=== PATIENT | female | born 1970 | race Hispanic/Latino ===

== ENCOUNTER 2020-10-26 12:02 | Emergency (ER) | payer SELFPAY ==
--- OUTSIDE RECORDS SUMMARY | 2020-10-26 12:25 | XMS REPORT | Continuity of Care Document ---
:1970 Author Organization [facility] t Address [address] [place] [address] Care Team Providers Name Role Phone Aron Attending Clinician Unknown Attending Clinician Unavailable Person MD Attending Clinician Person MD Admitting Clinician Problems This patient has no known problems. Allergies, Adverse Reactions, Alerts This patient has no known allergies or adverse reactions. Social History Social Habit Start Date Stop Date Quantity Comments Source Sex Assigned At MD Cardona Medications This patient has no known medications. Procedures This patient has no known procedures. Encounters Start End Encounter Admission Attending Care Care Encounter Source Date/Time Date/Time Type Type Clinicians Facility Department ID 2020-02-09 2020-02-09 Transition Genie Sharp [id number] 00:00:00 00:00:00 of Care Adriana Scott [id number] [facility] [id number] 2020-02-09 2020-02-09 Telephone Unknown, OSMAN [id number] 00:00:00 00:00:00 Attending HEALTH [id number] [facility] [id number] 2020-02-06 2020-02-08 Hospital PersonMalathi [id number] 21:53:35 14:58:00 Encounter Magno Romo [id number] [facility] [id number] Results This patient has no known results.
[2020-10-26] MEDS ORDERED: ACETAMINOPHEN 500 MG TAB ONE (13:45)
--- NOTE | 2020-10-26 14:02 | RAD REPORT ---
EXAM DESCRIPTION: RAD - Chest Single View - 10/26/2020 1:56 pm CLINICAL HISTORY: Cough;Fever COMPARISON: Portable September 2012 TECHNIQUE: AP portable chest image was obtained 10/26/2020 1:56 pm . FINDINGS: Lung volumes are low. Bilateral lung base atelectasis present. Heart size and vasculature are accentuated by low lung volumes. No significant failure or volume overload. No peripheral mass or consolidation. Heart and vasculature are normal. No measurable pleural effusion and no pneumothorax. No acute bony abnormality seen. No acute aortic findings suspected. IMPRESSION: Limited portable study without acute cardiopulmonary finding. No significant change from comparison.
[2020-10-26 14:59] LABS: SARS-COV-2 RT PCR POSITIVE (NEGATIVE)
--- NOTE | 2020-10-26 15:02 | ER ---
Nurse's Notes [facility] Name: Rosalia Hui Age: 50 yrs Sex: Female : 1970 Arrival Date: 10/26/2020 Time: 12:03 Bed 4 Private MD: Diagnosis: Coronavirus infection, unspecified Presentation: 10/26 13:15 Chief complaint: Patient's son or daughter states: Productive cough, fever, sore jl7 throat, body aches, chills x 2 days. Coronavirus screen: Client denies travel out of the [place] in the last 14 days. chills, congestion, cough unrelated to allergies, fever, headache, shortness of breath, sore throat, Client presents with at least one sign or symptom that may indicate coronavirus-19. Standard/surgical mask placed on the client. Provider contacted for isolation considerations. Ebola Screen: No symptoms or risks identified at this time. Resp Distress? No respiratory distress is noted at this time. Initial Sepsis Screen: Does the patient meet any 2 criteria? RR > 20 per min. Temp <36.0*C (96.8*F)) or > 38.3*C (100.9*F). HR > 90 bpm. Yes Does the patient have a suspected source of infection? Yes: Productive cough/pneumonia If YES to both, name of provider notified: Halina CULLEN. Risk Assessment: Do you want to hurt yourself or someone else? Patient reports no desire to harm self or others. Onset of symptoms was October 25, 2020. Care prior to arrival: None. Transition of care: patient was not received from another setting of care. 13:15 Method Of Arrival: Wheelchair jl7 13:15 Acuity: DOREEN 3 jl7 Triage Assessment: 13:19 General: Appears in no apparent distress. uncomfortable, ill, Behavior is calm, jl7 cooperative, appropriate for age. Pain: Complains of pain in chest Pain currently is 8 out of 10 on a pain scale. Quality of pain is described as aching. Respiratory: Airway is patent Respiratory effort is even, unlabored, Respiratory pattern is symmetrical, tachypnea not auscultated. 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 - Social history:: Smoking status: Patient denies any tobacco usage or history of. Screenin:59 Abuse screen: Denies threats or abuse. Denies injuries from another. Nutritional iw screening: No deficits noted. Tuberculosis screening: No symptoms or risk factors identified. Fall Risk None identified. Assessment: 14:00 General: Appears in no apparent distress. Behavior is calm, cooperative. Neuro: Level iw of Consciousness is awake, alert, obeys commands. Cardiovascular: Patient's skin is warm and dry. Respiratory: Respiratory effort is even, unlabored, Respiratory pattern is regular. Respiratory: Reports cough that is. Respiratory: Reports Breath sounds are clear bilaterally. Derm: Skin is intact, is healthy with good turgor. Musculoskeletal: Range of motion: intact in all extremities. 14:58 Reassessment: Patient appears in no apparent distress at this time. Patient and/or iw family updated on plan of care and expected duration. Pain level reassessed. Patient is alert, oriented x 3, equal unlabored respirations, skin warm/dry/pink. pt states pain is 8/10, temp is down to 100.6, c/o pain to head and legs , body aches. Vital Signs: 13:15 BP 143 / 92; Pulse 108; Resp 23; Temp 103; Pulse Ox 97% ; Weight 81.65 kg; Pain 8/10; jl7 14:58 BP 133 / 96; Pulse 106; Resp 20; Temp 100.6; Pulse Ox 97% on R/A; Pain 8/10; em1 ED Course: 12:03 Patient arrived in ED. as 12:57 Halina Leone FNP-C [facility]. kb 12:57 Jung Stuart MD is Attending Physician. kb 13:18 Triage completed. jl7 13:19 Arm band placed on right wrist. jl7 13:34 Nell Farrell, RN is Primary Nurse. iw 13:43 COVID swab sent to lab. Flu and/or RSV swab sent to lab. jl7 13:57 Chest Single View XRAY In Process Unspecified. EDMS 14:00 Patient has correct armband on for positive identification. iw 15:09 No provider procedures requiring assistance completed. Patient did not have IV access iw during this emergency room visit. Administered Medications: 13:30 Drug: Tylenol 1000 mg Route: PO; jl7 Outcome: 15:01 Discharge ordered by . ifeanyi 15:09 Discharged to home ambulatory. iw 15:09 Condition: good 15:09 Discharge instructions given to patient, Instructed on discharge instructions, follow up and referral plans. Demonstrated understanding of instructions, follow-up care. 15:10 Patient left the ED. iw Signatures: Dispatcher [employer] EDRI Halina Leone, Alma Rosa Sierra Irene, RN RN iw Garrett Velasquez em1 Sumit Zacarias RN RN jl7 Corrections: (The following items were deleted from the chart) 13:42 13:15 Initial Sepsis Screen: Does the patient meet any 2 criteria? RR > 20 per min. jl7 Temp <36.0*C (96.8*F)) or > 38.3*C (100.9*F). HR > 90 bpm. Yes Does the patient have a suspected source of infection? Yes: Productive cough/pneumonia If YES to both, name of provider notified: Halina CULLEN jl7
--- NOTE | 2020-10-26 15:02 | EDPHYS ---
Physician Documentation [facility] Name: Rosalia Hui Age: 50 yrs Sex: Female : 1970 Arrival Date: 10/26/2020 Time: 12:03 Bed 4 Private MD: ED Physician Jung Stuart HPI: 10/26 15:07 This 50 yrs old Female presents to ER via Wheelchair with complaints of Fever, kb Cough, Congestion. 15:07 The patient or guardian reports cough, flu symptoms, low-grade fever, myalgias, no kb appetite. Onset: The symptoms/episode began/occurred yesterday. Severity of symptoms: At their worst the symptoms were moderate, in the emergency department the symptoms are unchanged. Modifying factors: The symptoms are alleviated by the symptoms are aggravated by nothing. Associated signs and symptoms: Pertinent positives: fever, Pertinent negatives: chest pain, diarrhea, ear ache, nausea, rhinorrhea, sore throat, vomiting. The patient has not experienced similar symptoms in the past. The patient has not recently seen a physician. 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 - Social history:: Smoking status: Patient denies any tobacco usage or history of. ROS: 15:10 Cardiovascular: Negative for chest pain, palpitations, and edema, Abdomen/GI: Negative kb for abdominal pain, nausea, vomiting, diarrhea, and constipation, MS/Extremity: Negative for injury and deformity, Skin: Negative for injury, rash, and discoloration, Neuro: Negative for headache, weakness, numbness, tingling, and seizure. 15:10 Constitutional: Positive for body aches, chills, fever, malaise. 15:10 Respiratory: Positive for cough, Negative for dyspnea on exertion, hemoptysis, orthopnea, pleurisy, shortness of breath, sputum production, wheezing. Exam: 15:10 Constitutional: This is a well developed, well nourished patient who is awake, alert, kb and in no acute distress. Head/Face: Normocephalic, atraumatic. Chest/axilla: Normal chest wall appearance and motion. Nontender with no deformity. No lesions are appreciated. Cardiovascular: Regular rate and rhythm with a normal S1 and S2. No gallops, murmurs, or rubs. Normal PMI, no JVD. No pulse deficits. Respiratory: Lungs have equal breath sounds bilaterally, clear to auscultation and percussion. No rales, rhonchi or wheezes noted. No increased work of breathing, no retractions or nasal flaring. Abdomen/GI: Soft, non-tender, with normal bowel sounds. No distension or tympany. No guarding or rebound. No evidence of tenderness throughout. Skin: Warm, dry with normal turgor. Normal color with no rashes, no lesions, and no evidence of cellulitis. MS/ Extremity: Pulses equal, no cyanosis. Neurovascular intact. Full, normal range of motion. Neuro: Awake and alert, GCS 15, oriented to person, place, time, and situation. Cranial nerves II-XII grossly intact. Motor strength 5/5 in all extremities. Sensory grossly intact. Cerebellar exam normal. Normal gait. Vital Signs: 13:15 BP 143 / 92; Pulse 108; Resp 23; Temp 103; Pulse Ox 97% ; Weight 81.65 kg; Pain 8/10; jl7 14:58 BP 133 / 96; Pulse 106; Resp 20; Temp 100.6; Pulse Ox 97% on R/A; Pain 8/10; em1 MDM: 13:23 Patient medically screened. kb 14:59 Data reviewed: vital signs, nurses notes. Data interpreted: Pulse oximetry: on room air kb is 97 %. Interpretation: normal. Counseling: I had a detailed discussion with the patient and/or guardian regarding: the historical points, exam findings, and any diagnostic results supporting the discharge/admit diagnosis, lab results, radiology results, the need for outpatient follow up, a family practitioner, to return to the emergency department if symptoms worsen or persist or if there are any questions or concerns that arise at home. 10/26 13:23 Order name: Chest Single View XRAY; Complete Time: 14:05 kb 10/26 14:59 Order name: COVID-19/FLU A+B; Complete Time: 14:59 EDMS Administered Medications: 13:30 Drug: Tylenol 1000 mg Route: PO; jl7 Disposition: 18:07 Co-signature as Attending Physician, Jung Stuart MD. rn Disposition: 10/26/20 15:01 Discharged to Home. Impression: Coronavirus infection, unspecified. - Condition is Stable. - Discharge Instructions: Viral Respiratory Infection, [id number], COVID-19. - Medication Reconciliation Form, Thank You Letter, Antibiotic Education, Prescription Opioid Use form. - Follow up: Emergency Department; When: As needed; Reason: Worsening of condition. Follow up: Private Physician; When: 2 - 3 days; Reason: Recheck today's complaints, Continuance of care, Re-evaluation by your physician. Signatures: Dispatcher [employer] [facility] Halina Leone, URBAN DESIGNER-C URBAN DESIGNER-Nell Greene, RN Jung Osman MD MD rn Leal, Jahala, RN RN jl7 Corrections: (The following items were deleted from the chart) 13:52 13:21 CORONAVIRUS+MR.LAB.BRZ ordered. [facility] 15:10 15:01 10/26/2020 15:01 Discharged to Home. Impression: Coronavirus infection, iw unspecified. Condition is Stable. Forms are Medication Reconciliation Form, Thank You Letter, Antibiotic Education, Prescription Opioid Use. Follow up: Emergency Department; When: As needed; Reason: Worsening of condition. Follow up: Private Physician; When: 2 - 3 days; Reason: Recheck today's complaints, Continuance of care, Re-evaluation by your physician. kb
[2020-10-26 15:25] VITALS: O2SAT 97
[2020-10-26 15:27] VITALS: BP 133/96; TEMP 100.6
== END 2020-10-26 15:10 | disposition home or self-care (01) ==
LOC: ER 12:02
DX: U07.1 COVID-19 (principal)
CPT/HCPCS: 0240U; 71045; 99283

== ENCOUNTER 2020-11-03 16:19 | Emergency (ER) | payer SELFPAY ==
--- OUTSIDE RECORDS SUMMARY | 2020-11-03 16:21 | XMS REPORT | Summary of Care ---
:1970 Author Organization [facility] Address [address] [place] [id number] Care Team Providers Name Role Phone Pcp, Does Not Have A Primary Care Provider Reason for Visit Reason Comments Fatigue Auth/Cert Status Reason Specialty Diagnoses / Referred By Referred To Procedures Contact Contact Emergency Medicine Ad[facility] Em ergency Dept [address] [place] [id number] Fax: Encounter Details Date Type Department Care Team Description 10/31/2020 Emergency ADC-Emergency Delilah Merdano PAC COVID-19 (Primary Dx) Department [address] [place] [address] [phone] [place] [address] [phone] Allergies No Known Allergiesdocumented as of this encounter (statuses as of 10/31/2020) Medications Medication Sig Dispensed Refills Start Date End Date Status ferrous sulfate 325 mg Take 1 Cap by 90 Cap 0 09/25/2015 Active (65 mg iron) SR mouth 3 (three) capsule times daily with meals. naproxen 250 mg Take 1 tablet by 0 02/08/2020 Active tabletIndications: mouth 2 (two) Acute appendicitis times daily with with localized meals. peritonitis, without perforation, abscess, or gangrene ibuprofen 600 mg Take 1 tablet by 30 tablet 0 10/31/2020 Active tabletIndications: mouth every 6 COVID-19 (six) hours as needed for Pain (scale 4-6). benzonatate 200 mg Take 1 capsule by 20 capsule 0 10/31/2020 Active capsuleIndications: mouth 3 (three) COVID-19 times daily as needed for Cough for up to 20 doses. ondansetron (ZOFRAN Take 1 tablet by 10 tablet 0 10/31/2020 Active ODT) 4 mg mouth every 8 disintegrating (eight) hours as tabletIndications: needed for Nausea COVID-19 and Vomiting (N/V). albuterol 90 Inhale 2 Puffs 8.5 g 0 10/31/2020 A ctive mcg/actuation every 4 (four) inhalerIndications: hours as needed COVID-19 for Wheezing or Shortness of Breath. documented as of this encounter (statuses as of 10/31/2020) Active Problems Problem Noted Date Obesity (BMI 30-39.9) 02/07/2020 Acute appendicitis with localized peritonitis, without perforation, 02/06/2020 abscess, or gangrene Abdominal pain, generalized 09/24/2015 documented as of this encounter (statuses as of 10/31/2020) Social History Tobacco Use Types Packs/Day Years Used Date Never Smoker Alcohol Use Drinks/Week oz/Week Comments No Sex Assigned at Date Recorded Not on file COVID-19 Exposure Response Date Recorded In the last month, have you been in contact with No / Unsure 10/31/2020 4:43 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 documented as of this encounter Last Filed Vital Signs Vital Sign Reading Time Taken Comments Blood Pressure 133/92 10/31/2020 5:30 PM ASSOCIATE PROFESSOR OF LITERACY Pulse 85 10/31/2020 5:30 PM ASSOCIATE PROFESSOR OF LITERACY Temperature 37.4 C (99.3 F) 10/31/2020 4:56 PM ASSOCIATE PROFESSOR OF LITERACY Respiratory Rate 14 10/31/2020 5:30 PM ASSOCIATE PROFESSOR OF LITERACY Oxygen Saturation 96% 10/31/2020 5:30 PM ASSOCIATE PROFESSOR OF LITERACY Inhaled Oxygen Concentration - - Weight 86.2 kg (190 lb) 10/31/2020 4:56 PM ASSOCIATE PROFESSOR OF LITERACY Height - - Body Mass Index 35.92 09/24/2015 8:52 PM ASSOCIATE PROFESSOR OF LITERACY documented in this encounter Discharge Instructions Delilah Villegas, PAC - 10/31/2020YOU NEED TO QUARANTINE FOR SUSPECTED COVID-19 You have the following prescriptions to take as needed: Tessalon Pearls (cough medication) Zofran (nausea medication) Ibuprofen (for headache, body aches, or fever) Albuterol inhaler You may also take the following Vitamin supplements shown to improved course of COVID: Vit C 1000mg daily Vit D3 20,000 units daily (high dose) Zinc 220mg daily Also recommended Asprin 325mg daily Mucinex D (as needed according to package instructions) Benadryl (as needed according to package instructions) Tylenol (as needed up to maximum of 1000mg every 6 hours) Imodium AD (as needed according to package instructions for diarrhea) Return to the ER for worsening shortness of breath, chest pain, or other concerns of serious illness. AttachmentsThe following attachments cannot be sent through Care Everywhere. Coronavirus Disease 2019 (COVID-19)- Overview (Portuguese)documented in this encounter ED Notes Pretty Ling RN - 10/31/2020 4:54 PM CSTPatient arrived via private car with c/o fatigue; states she tested positive for covid almost 1 weekago; last medicated at 2pm today for fever. Patient ambulated from [facility] to [facility] without difficulty.O2 sats upon arrival to room 96% on room air. Delilah Sheldon PAC - 10/31/2020 4:44 PM CST [facility] Emergency Department Note Patient Name: Rosalia Hui Date of : 1970 50 year old female Treatment Room: [place] [address] Primary Care Physician: PATIENT DOES NOT HAVE A PCP Patient Escorted by: Family [5] Mode of Arrival: Personal means [1] EMS Treatment Prior to ED Arrival: COIL TIER treatment: None Travel and Exposure Screening: Symptoms Does patient have any of these symptoms?: (not recorded) Exposure Screening Has patient had contact with someone with a communicable disease in the last month?: (not recorded) Diseases exposed to:: (not recorded) Is Patient ?: (not recorded) Exposure Date: (not recorded) Chief Complaint: Chief Complaint Patient presents with Fatigue History of Present Illness: HPI Past Medical History/Immunizations: No past medical history on file. Tetanus received in last 5 years: No Allergies: No Known Allergies Past Social History: Tobacco Use Never Smoker. Alcohol Use No. Drug Use No. Past Surgical History: Past Surgical History: Procedure Laterality Date CHOLECYSTECTOMY LAPAROSCOPIC APPENDECTOMY N/A 02/06/2020 Surgeon: Magno Zavala MD; Location: [facility] Review of Systems: Review of Systems Physical Exam: ED Triage Vitals [10/31/20 1656] Weight 86.2 kg (190 lb) Actual or estimated Estimated by patient/family report Height BP (!) 163/90 Pulse 88 Resp 22 Temp 37.4 C (99.3 F) Temp source Axillary SpO2 97 % Measured on Room air Physical Exam Radiology: No results found for this visit on 10/31/20. Lab Results (24h): No results found for this or any previous visit (from the past 24 hour(s)). Orders and Treatments: No orders of the defined types were placed in this encounter. No orders of the defined types were placed in this encounter. ED COURSE MDM: Coding Scoring Tools: No data recorded Diagnosis/Impression: No diagnosis found. Disposition/Condition: ED Disposition None Discharge Medications: Patient's Medications START taking these medications No medications on file CONTINUE taking these medications which have NOT CHANGED FERROUS SULFATE 325 MG (65 MG IRON) SR CAPSULE Take 1 Cap by mouth 3 (three) times daily with meals. NAPROXEN 250 MG TABLET Take 1 tablet by mouth 2 (two) times daily with meals. START taking Modified Medications as Prescribed No medications on file STOP taking these medications No medications on file Follow-up: Electronically signed by: TENA Thomas 10/31/2020 5:36 PM CIATE PROFESSOR OF LITERACY documented in this encounter Miscellaneous Notes ED Nurse Note - Alva Osuna RN - 10/31/2020 5:48 PM CSTPatient provided discharge instructions, AVS, prescription, Return precautions, quarantine instructions, and told to follow-up with PCP. Patient verbalized understanding of discharge instructions and ambulated out of ED in no acute distress. D Nurse Note - Pauly Noguera RN - 10/31/2020 5:00 PM CSTPatient said she tested positive for covid on October 26, 2020 done in [place]. documented in this encounter Plan of Treatment Health Maintenance Due Date Last Done Comments PNEUMOCOCCAL 0-64 YEARS COMBINED 1974 SERIES (1 of 3 - PCV13) Depression Screening 1980 DTaP,Tdap,and Td Vaccines (1 - Tdap) 1987 PAP SMEAR 09/04/2008 09/04/2005, 08/15/2004, 08/17/2003 Breast Cancer Screening (MAMMOGRAM) 2008 COLON CANCER SCREENING ANNUAL 2018 FIT/FOBT COLON CANCER SCREENING FIT DNA EVERY 2018 3 YEARS COLON CANCER SCREENING SIGMOIDOSCOPY 2018 EVERY 5 YEARS COLONOSCOPY 2018 Colorectal Cancer Screening 2018 Zoster Recombinant Vaccine (SHINGRIX) 2018 (1 of 2) INFLUENZA VACCINE (#1) 2020 documented as of this encounter Procedures Procedure Name Priority Date/Time Associated Diagnosis Comme nts NOTICE OF PRIVACY Routine 10/31/2020 4:43 PM ASSOCIATE PROFESSOR OF LITERACY PRACTICES documented in this encounter Results Not on filedocumented in this encounter Visit Diagnoses Diagnosis COVID-19 - Primary documented in this encounter Administered Medications Medication Order MAR Action Action Date Dose Rate Site albuterol (VENTOLIN) inhaler 2 Given 10/31/2020 5:45 PM ASSOCIATE PROFESSOR OF LITERACY 2 P uffs Puff 2 Puff, Inhalation, ONCE, 1 dose, 10/31/20 at 1845, JC, Is this order for a patient with suspected or confirmed COVID-19 infection? Yes documented in this encounter
--- OUTSIDE RECORDS SUMMARY | 2020-11-03 16:21 | XMS REPORT | Summary of Care ---
:1970 Author Organization [facility] - Health Address [address] [place] [id number] Care Team Providers Name Role Phone Pcp, Does Not Have A Primary Care Provider Encounter Details Date Type Department Care Team Description 10/31/2020 Orders Only [facility] Doctor Unassigned, No [address] [facility] Name [place] [phone] [place] [phone] Allergies No Known Allergiesdocumented as of this encounter (statuses as of 10/31/2020) Medications Medication Sig Dispensed Refills Start Date End Date Status ferrous sulfate 325 mg Take 1 Cap by 90 Cap 0 09/25/2015 Active (65 mg iron) SR capsule mouth 3 (three) times daily with meals. naproxen 250 mg Take 1 tablet by 0 02/08/2020 Active tabletIndications: mouth 2 (two) Acute appendicitis with times daily with localized peritonitis, meals. without perforation, abscess, or gangrene documented as of this encounter (statuses as [...] Assigned at Date Recorded Not on file documented as of this encounter Last Filed Vital Signs Not on filedocumented in this encounter Plan of Treatment Health [...] Name Priority Date/Time Associated Diagnosis Comme nts CONSENT/REFUSAL FOR Routine 10/31/2020 4:43 PM PASTRY FINISHER DIAGNOSIS AND TREATMENT documented in this encounter Results Not on filedocumented in this encounter
--- OUTSIDE RECORDS SUMMARY | 2020-11-03 16:21 | XMS REPORT | Continuity of Care Document ---
:1970 Author Organization [facility] t Address [address] [place] [address] Care Team Providers Name Role Phone Ling Dowling Attending Clinician Doctor Unassigned, Name Attending Clinician Unavailable Sharp Attending Clinician Unknown Attending Clinician Unavailable Person [...] Date/Time Type Type Clinicians Facility Department ID 2020-10-31 2020-10-31 Emergency Delilah Medrano [facility] [id number] 16:49:00 17:48:00 Ling Braga [id number] [place] [id number] [place] [id number] [id number] 2020-10-31 2020-10-31 Orders Doctor WILKINSON [id number] 00:00:00 00:00:00 Only UnassASIYA chester [id number] [place] [facility] [id number] [id number] 2020-02-09 2020-02-09 Transition Genie Sharp [id number] 00:00:00 00:00:00 of Care Adriana Scott [id number] [place] [id number] 2020-02-09 2020-02-09 Telephone Unknown, [facility] [id number] 00:00:00 00:00:00 Attending [facility] [id number] CLINICS [id number] 2020-02-06 2020-02-08 Hospital Malathi Zavala [id number] 21:53:35 14:58:00 Encounter Magno Romo [id number] Hospital [id number] Results This patient has no known results.
[2020-11-03] MEDS ORDERED: METHYLPREDNISOLONE 40 MG INJ ONE (19:55)
[2020-11-03] MEDS ORDERED: HYDROCODONE/CHLORPHEN 5 ML/OSYR ONE (19:55)
[2020-11-03 20:19] LABS: Absolute Lymphocytes (CBC) 1.3 K/uL (0.7-4.9); Basophils % 0.2 % (0-1.3); Hematocrit 36.9 % (36.0-45.0); Lymphocytes % 33.5 % (15.3-44.8); MPV 9.1 fL (7.6-11.3); RBC Red Blood Cell Count 4.53 M/uL (3.86-4.86)
[2020-11-03 20:29] LABS: ALT/SGPT 64 U/L (12-78); AST/SGOT 52 U/L (15-37); Albumin 3.5 g/dL (3.4-5.0); Alkaline Phosphatase 176 U/L (45-117); BUN Blood Urea Nitrogen 13 mg/dL (7-18); Bicarbonate 24 mmol/L (21-32); Bilirubin Direct < 0.1 mg/dL (0-0.2); Bilirubin Total 0.2 mg/dL (0.2-1.0); Glucose Level 92 mg/dL (74-106); Magnesium 2.3 mg/dL (1.8-2.4); NT PRO-BNP 51 pg/mL (<125); Potassium 3.5 mmol/L (3.5-5.1); Protein, Total 7.8 g/dL (6.4-8.2); Sodium Level 140 mmol/L (136-145); Troponin (Emerg Dept Use Only) < 0.02 ng/mL (0.0-0.045)
--- NOTE | 2020-11-03 20:36 | RAD REPORT ---
EXAM DESCRIPTION: RAD - Chest Single View - 11/03/2020 8:27 pm CLINICAL HISTORY: Chest pain;Cough Chest pain. COMPARISON: Chest Single View dated 10/26/2020; CHEST SINGLE VIEW dated 09/30/2012; CHEST PA AND LAT 2 VIEW dated 07/17/2002 FINDINGS: Portable technique limits examination quality. Mild bilateral interstitial opacities are present likely representing viral pneumonitis/ bronchitis. The heart is upper limit normal size. No displaced fractures.
[2020-11-03 20:58] LABS: Protime INR 0.96
--- NOTE | 2020-11-03 22:03 | ER ---
Nurse's Notes [facility] Name: Rosalia Hui Age: 50 yrs Sex: Female : 1970 Arrival Date: 11/03/2020 Time: 16:21 Bed 24 Private MD: Diagnosis: Coronavirus infection, unspecified;Pneumonia due to other specified infectious organisms Presentation: 11/03 16:32 Chief complaint: Patient states: Covid positive 10/25/20. SOB, fever, chest pain for 5 ll1 days. Coronavirus screen: Client denies travel out of the [place] in the last 14 days. cough unrelated to allergies, difficulty breathing, fatigue, fever, headache, muscle pain, shaking with chills, shortness of breath, sore throat, loss of taste or smell, Client presents with at least one sign or symptom that may indicate coronavirus-19. Standard/surgical mask placed on the client. Client reports previous positive COVID test result. Ebola Screen: Patient denies travel to an Ebola-affected area in the 21 days before illness onset. Initial Sepsis Screen: Does the patient meet any 2 criteria? RR > 20 per min. Does the patient have a suspected source of infection? Yes: Productive cough/pneumonia. Risk Assessment: Do you want to hurt yourself or someone else? Patient reports no desire to harm self or others. Onset of symptoms was October 25, 2020. 16:32 Method Of Arrival: Ambulatory ll1 16:32 Acuity: DOREEN 3 ll1 Triage Assessment: 19:15 General: Appears distressed, uncomfortable, obese, Behavior is cooperative, appropriate bp for age, anxious. Pain: Complains of pain in chest. EENT: No deficits noted. Neuro: Level of Consciousness is awake, alert, obeys commands, Oriented to person, place, time, situation, Appropriate for age. Cardiovascular: Rhythm is sinus rhythm. Respiratory: Reports cough that is Breath sounds with crackles bilaterally. GI: No signs and/or symptoms were reported involving the gastrointestinal system. : No signs and/or symptoms were reported regarding the genitourinary system. Derm: No deficits noted. Musculoskeletal: No deficits noted. Historical: - Allergies: 16:34 No Known Allergies; ll1 - PSHx: 16:34 Appendectomy; Cholecystectomy; ll1 - Immunization history:: Flu vaccine is not up to date. - Social history:: Smoking status: Patient denies any tobacco usage or history of. Screenin:15 Abuse screen: Denies threats or abuse. Denies injuries from another. Nutritional bp screening: No deficits noted. Tuberculosis screening: No symptoms or risk factors identified. Fall Risk None identified. Assessment: 19:15 General: SEE TRIAGE NOTE. bp 20:30 Reassessment: ALL CURRENT ORDERS COMPLETED, RESULTS PENDING. bp 21:30 Reassessment: No changes from previously documented assessment. Patient and/or family bp updated on plan of care and expected duration. Pain level reassessed. Patient is alert, oriented x 3, equal unlabored respirations, skin warm/dry/pink. 22:27 Reassessment: PT D/C HOME AMBULATORY, DX WITH COVID PNEUMONIA. bp Vital Signs: 16:32 BP 139 / 89; Pulse 93; Resp 28; Temp 98.7; Pulse Ox 97% on R/A; Weight 85.73 kg; Height ll1 5 ft. 1 in. (154.94 cm); Pain 9/10; 20:30 BP 142 / 85; Pulse 80; Resp 16; Pulse Ox 99% ; bp 21:30 BP 138 / 91; Pulse 79; Resp 16; Pulse Ox 96% on R/A; bp 22:26 BP 148 / 94; Pulse 78; Resp 17; Pulse Ox 94% on R/A; bp 16:32 Body Mass Index 35.71 (85.73 kg, 154.94 cm) ll1 ED Course: 16:21 Patient arrived in ED. ds1 16:34 Triage completed. ll1 16:35 Arm band placed on. ll1 19:15 Romero Chery PA is PHCP. cp 19:15 Elian العراقي MD is Attending Physician. cp 19:15 Romero Cardona MD is Attending Physician. cp 19:15 Patient has correct armband on for positive identification. Placed in gown. Bed in low bp position. Call light in reach. Side rails up X2. monitor tech on. Pulse ox on. NIBP on. 19:15 Patient maintains SpO2 saturation greater than 95% on room air. bp 19:25 Naeem Yanez, MARLON is Primary Nurse. bp 19:45 Inserted saline lock: 22 gauge in right forearm, using aseptic technique. Blood bp collected. 22:35 No provider procedures requiring assistance completed. IV discontinued, intact, bp bleeding controlled, No redness/swelling at site. Pressure dressing applied. Administered Medications: 19:45 Drug: Tussionex Pennkinetic ER 5 ml Route: PO; bp 20:03 Follow up: Response: No adverse reaction bp 19:45 Drug: SOLU-Medrol 80 mg Route: IVP; Site: right forearm; bp 20:03 Follow up: Response: No adverse reaction bp 21:45 Drug: Rocephin - (cefTRIAXone) 1 grams Route: IVPB; Infused Over: 30 mins; Site: right bp forearm; 22:27 Follow up: IV Status: Completed infusion; IV Intake: 50ml bp Intake: 22:27 IV: 50ml; Total: 50ml. bp Outcome: 22:03 Discharge ordered by MD. cp 22:36 Discharged to home ambulatory. bp 22:36 Condition: stable 22:36 Discharge instructions given to patient, Instructed on discharge instructions, follow up and referral plans. medication usage, Demonstrated understanding of instructions, follow-up care, medications, Prescriptions given X 1. 22:39 Patient left the ED. bp Signatures: Mar Calvert ds1 Romero Chery PA PA cp Peltier, Brian, RN RN bp Kassi Arias RN RN ll1
--- NOTE | 2020-11-03 22:03 | EDPHYS ---
Physician Documentation [facility] Name: Rosalia Hui Age: 50 yrs Sex: Female : 1970 Arrival Date: 11/03/2020 Time: 16:21 Bed 24 Private MD: ED Physician Romero Cardona HPI: 11/03 19:35 This 50 yrs old Female presents to ER via Ambulatory with complaints of Covid cp + SOB, Chest Pain. 19:35 The patient has shortness of breath at rest. cp 19:35 Onset: The symptoms/episode began/occurred 5 day(s) ago. Duration: The symptoms are cp continuous, and are steadily getting worse. Associated signs and symptoms: Pertinent positives: chest pain, fever. Severity of symptoms: in the emergency department the symptoms are unchanged despite home interventions. 19:35 Patient reports she tested positive for Covid-19 on 10-25-2020. cp Historical: - Allergies: 16:34 No Known Allergies; ll1 - PSHx: 16:34 Appendectomy; Cholecystectomy; ll1 - Immunization history:: Flu vaccine is not up to date. - Social history:: Smoking status: Patient denies any tobacco usage or history of. ROS: 19:40 Constitutional: Negative for body aches, chills, fever, poor PO intake. cp 19:40 Eyes: Negative for injury, pain, redness, and discharge. cp 19:40 ENT: Negative for ear pain, sore throat. 19:40 Cardiovascular: Positive for chest pain, with cough, Negative for palpitations. 19:40 Respiratory: Positive for cough, "sounds productive", shortness of breath, Negative for wheezing. 19:40 Abdomen/GI: Negative for abdominal pain, nausea, vomiting, and diarrhea. 19:40 Back: Negative for pain at rest, pain with movement. 19:40 Neuro: Negative for altered mental status, dizziness, headache, syncope, weakness. 19:40 All other systems are negative. cp Exam: 19:55 Constitutional: The patient appears in no acute distress, alert, awake, cp non-diaphoretic, non-toxic, well developed, well nourished. 19:55 Head/Face: Normocephalic, atraumatic. cp 19:55 Eyes: Periorbital structures: appear normal, Conjunctiva: normal, no exudate, no injection, Sclera: no appreciated abnormality, Lids and lashes: appear normal, bilaterally. 19:55 ENT: External ear(s): are unremarkable, Nose: is normal, Posterior pharynx: Airway: no evidence of obstruction, patent. 19:55 Neck: ROM/movement: is normal, is supple, no meningismus, no nuchal rigidity. 19:55 Chest/axilla: Inspection: normal, Palpation: is normal, no crepitus, no tenderness. 19:55 Cardiovascular: Rate: normal, Rhythm: regular, Heart sounds: murmur, not appreciated, Edema: is not appreciated, JVD: is not appreciated. 19:55 Respiratory: the patient does not display signs of respiratory distress, Respirations: labored breathing, that is mild, intercostal retractions, are absent, Breath sounds: bronchial sounds, that are mild, are heard diffusely, wheezing: is not appreciated. 19:55 Abdomen/GI: Inspection: abdomen appears normal, Bowel sounds: active, all quadrants, Palpation: abdomen is soft and non-tender, in all quadrants, rebound tenderness, is not appreciated, voluntary guarding, is not appreciated, involuntary guarding, is not appreciated. 19:55 Back: pain, is absent, ROM is normal. 19:55 Neuro: Orientation: to person, place \\T\\ time. Mentation: is normal, Motor: moves all fours, strength is normal. 20:25 ECG was reviewed by the Attending Physician. cp Vital Signs: 16:32 BP 139 / 89; Pulse 93; Resp 28; Temp 98.7; Pulse Ox 97% on R/A; Weight 85.73 kg; Height ll1 5 ft. 1 in. (154.94 cm); Pain 9/10; 20:30 BP 142 / 85; Pulse 80; Resp 16; Pulse Ox 99% ; bp 21:30 BP 138 / 91; Pulse 79; Resp 16; Pulse Ox 96% on R/A; bp 22:26 BP 148 / 94; Pulse 78; Resp 17; Pulse Ox 94% on R/A; bp 16:32 Body Mass Index 35.71 (85.73 kg, 154.94 cm) ll1 MDM: 19:16 Patient medically screened. kevin 20:00 Differential diagnosis: pneumonia, Pneumothorax pulmonary edema, Pulmonary Embolism cp Sepsis. 22:02 Data reviewed: vital signs, nurses notes, lab test result(s), radiologic studies, plain cp films, and as a result, I will discharge patient. 22:02 Test interpretation: by ED physician or midlevel provider: ECG, plain radiologic cp studies. Counseling: I had a detailed discussion with the patient and/or guardian regarding: the historical points, exam findings, and any diagnostic results supporting the discharge/admit diagnosis, lab results, radiology results, the need for outpatient follow up, a family practitioner, to return to the emergency department if symptoms worsen or persist or if there are any questions or concerns that arise at home. Response to treatment: the patient's symptoms have markedly improved after treatment, VSS. Patient appears non-toxic and no signs of respiratory distress. Patient maintains oxygens above 94%. Will discharge to home for continued monitoring. 11/03 19:32 Order name: Basic Metabolic Panel cp 11/03 19:32 Order name: CBC with Diff cp 11/03 19:32 Order name: LFT's cp 11/03 19:32 Order name: Magnesium cp 11/03 19:32 Order name: NT PRO-BNP cp 11/03 19:32 Order name: PT-INR cp 11/03 19:32 Order name: Troponin (emerg Dept Use Only) cp 11/03 19:32 Order name: COVID-19 cp 11/03 19:32 Order name: D-Dimer cp 11/03 19:32 Order name: Influenza Screen (a \\T\\ B) cp 11/03 20:29 Order name: Basic Metabolic Panel; Complete Time: 21:26 EDMS 11/03 20:29 Order name: Liver (Hepatic) Function; Complete Time: 21:26 EDVA 11/03 20:29 Order name: Troponin (Emerg Dept Use Only); Complete Time: 21:26 EDMS 11/03 20:29 Order name: NT PRO-BNP; Complete Time: 21:26 EDMS 11/03 19:32 Order name: XRAY Chest (1 view) cp 11/03 19:32 Order name: EKG; Complete Time: 19:33 cp 11/03 19:32 Order name: Cardiac monitoring; Complete Time: 20:31 cp 11/03 19:32 Order name: EKG - Nurse/Tech; Complete Time: 20:31 cp 11/03 19:32 Order name: IV Saline Lock; Complete Time: 20:00 cp 11/03 20:29 Order name: Magnesium; Complete Time: 21:26 EDMS 11/03 20:33 Order name: CBC with Automated Diff; Complete Time: : EDVA 11/03 20:37 Order name: RAD; Complete Time: 21: EDVA 11/03 20:58 Order name: Protime (+INR); Complete Time: 21:26 EDMS 11/03 20:58 Order name: D-Dimer; Complete Time: 21: EDVA 11/03 21:22 Order name: Influenza Screen (A EDMS 11/03 21:23 Order name: CORONAVIRUS EDVA 11/03 22:35 Order name: COVID-19/FLU A+B EDMS 11/03 19:32 Order name: Labs collected and sent; Complete Time: 20:00 cp 11/03 19:32 Order name: O2 Per Protocol; Complete Time: 20:00 cp 11/03 19:32 Order name: O2 Sat Monitoring; Complete Time: 20:00 cp EC:25 Rate is 78 beats/min. Rhythm is regular. WA interval is normal. QRS interval is normal. cp QT interval is normal. T waves are Inverted in lead aVR. Interpreted by me. Reviewed by me. Administered Medications: 19:45 Drug: Tussionex Pennkinetic ER 5 ml Route: PO; bp 20:03 Follow up: Response: No adverse reaction bp 19:45 Drug: SOLU-Medrol 80 mg Route: IVP; Site: right forearm; bp 20:03 Follow up: Response: No adverse reaction bp 21:45 Drug: Rocephin - (cefTRIAXone) 1 grams Route: IVPB; Infused Over: 30 mins; Site: right bp forearm; 22:27 Follow up: IV Status: Completed infusion; IV Intake: 50ml bp Disposition: 11/04 07:24 Co-signature as Attending Physician, Romero Cardona MD I agree with the assessment and kevin plan of care. Disposition: 11/03/20 22:03 Discharged to Home. Impression: Coronavirus infection, unspecified, Pneumonia due to other specified infectious organisms. - Condition is Stable. - Discharge Instructions: Community-Acquired Pneumonia, Adult, COVID-19. - Prescriptions for ivermectin 3 mg Oral tablet - take 5 tablet by ORAL route every other day x2 doses; 10 tablet. Tessalon Perles 100 mg Oral Capsule - take 2 capsule by ORAL route every 8 hours As needed; 30 capsule. Zithromax Z- Fermín 250 mg Oral Tablet - take 1 tablet by ORAL route as directed for 5 days Day 1 - take two (2) tablets one time. Day 2, 3, 4 , 5 take one (1) tablet once daily.; 6 tablet. Prednisone 20 mg Oral Tablet - take 1 tablet by ORAL route every 12 hours for 5 days then 1/2 tablet every 12 hours for 5 days; 15 tablet. Albuterol Sulfate 90 mcg/actuation - inhale 1-2 puff by INHALATION route every 4-6 hours; 1 Inhaler. - Medication Reconciliation Form, Thank You Letter, Antibiotic Education, Prescription Opioid Use form. - Follow up: Private Physician; When: 2 - 3 days; Reason: Worsening of condition. - Problem is new. - Symptoms have improved. Signatures: Dispatcher [employer] EDMS Romero Cardona MD MD cha Page, Corey, PA PA cp Naeem Yanez RN RN Kassi Posadas RN RN ll1 Corrections: (The following items were deleted from the chart) 11/03 22:39 22:03 11/03/2020 22:03 Discharged to Home. Impression: Coronavirus infection, bp unspecified; Pneumonia due to other specified infectious organisms. Condition is Stable. Forms are Medication Reconciliation Form, Thank You Letter, Antibiotic Education, Prescription Opioid Use. Follow up: Private Physician; When: 2 - 3 days; Reason: Worsening of condition. Problem is new. Symptoms have improved. cp 11/04 21:20 11/03 19:40 All other systems are negative, cp cp
[2020-11-03] MEDS ORDERED: CEFTRIAXONE/SWI 1gm 1 GM/10 ML SYR ONE (22:11)
[2020-11-03] MEDS ORDERED: NA CHLORIDE 0.9% 100 ML ONE (22:11)
[2020-11-03 22:35] LABS: SARS-COV-2 RT PCR POSITIVE (NEGATIVE)
[2020-11-03 23:07] VITALS: TEMP 98.7
[2020-11-03 23:11] VITALS: BP 148/94; O2SAT 94
== END 2020-11-03 22:39 | disposition home or self-care (01) ==
LOC: ER 16:19
DX: U07.1 COVID-19 (principal); J16.8 Pneumonia due to other specified infectious organisms
CPT/HCPCS: 0240U; 36415; 71045; 80048; 80076; 83735; 83880; 84484; 85025; 85379; 85610; 93005; 96365; 96375; 99285; J0696; J2920